=== PATIENT | female | born 1990 | race Caucasian/White ===

== ENCOUNTER 2016-08-16 20:13 | Emergency (ER) | payer OTHER ==
[~2016-08-16] VITALS: Ht 172.7 cm; Wt 108.9 kg
[~2016-08-16 20:13] MED LIST: ALBUTEROL0.09 MG/A3 IH; IMITREX25 MG PO; MOTRIN; NORCO 10/325 MG1 TAB PO; VENTOLIN INHALER; ZITHROMAX250 MG PO
[2016-08-16 21:04] VITALS: BP 122/87
--- NOTE | 2016-08-16 21:25 | NUR ---
PT TAKEN TO BED 3
--- NOTE | 2016-08-16 21:28 | NUR ---
26Y M BIB FAMILY C/O HEADACHE X 2 DAYS. 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 SKIN IS PINK/WARM/DRY; AAOX4 WITH EVEN AND STEADY GAIT; LUNGS CLEAR BL; HR EVEN AND REGULAR; PT DENIES ANY FEVER, CP, SOB, OR COUGH AT THIS TIME; PATIENT STATES PAIN OF 7/10 AT THIS TIME; VSS; PATIENT POSITIONED FOR COMFORT; HOB ELEVATED; BEDRAILS UP X2; BED DOWN. ER MD MADE AWARE OF PT STATUS.
--- NOTE | 2016-08-16 21:28 | NUR ---
Dr. Harvey evaluating patient at bedside.
[2016-08-16] MEDS ORDERED: KETOROLAC 30 MG/ML VIAL IVP ONE (21:40)
[2016-08-16] MEDS ORDERED: NACL 0.9% 1,000 ML IV ONE (21:40)
[2016-08-16] MEDS ORDERED: METOCLOPRAMIDE 10 MG/2 ML INJ VIAL IVP ONE (21:40)
[2016-08-16] MEDS ORDERED: diphenhydrAMINE 50 MG/ML VIAL IVP ONE (21:40)
[2016-08-16 22:58] VITALS: BP 109/73
--- NOTE | 2016-08-16 23:00 | NUR ---
Patient discharged with v/s stable. Written and verbal after care instructions given and explained. Patient alert, oriented and verbalized understanding of instructions. Ambulatory with steady gait. All questions addressed prior to discharge. ID band removed. Patient advised to follow up with PMD. Rx of FIORICET 50/325/40 MG given. Patient educated on indication of medication including possible reaction and side effects. Opportunity to ask questions provided and answered.
[2016-11-25] MEDS ORDERED: ROXICODONE5 M1 PO (13:37)
[2016-11-25] MEDS ORDERED: MOTRIN400 MG PO (13:37)
== END 2016-08-16 23:00 | disposition home or self-care (01) ==
LOC: MED 20:13
DX: G43.909 Migraine, unspecified, not intractable, without status migrainosus (principal); J45.909 Unspecified asthma, uncomplicated; Z88.1 Allergy status to other antibiotic agents; Z88.6 Allergy status to analgesic agent
CPT/HCPCS: 81002; 96361; 96374; 96375; 99284; J1200; J1885; J2765; J7030

== ENCOUNTER 2016-09-07 19:33 | Emergency (ER) | payer OTHER ==
[~2016-09-07] VITALS: Ht 172.7 cm; Wt 108.9 kg
[2016-09-07 20:16] VITALS: BP 131/93
--- NOTE | 2016-09-07 22:02 | NUR ---
Patient to bed 05.
--- NOTE | 2016-09-07 22:09 | NUR ---
Dr. Harvey evaluating patient at bedside.
--- NOTE | 2016-09-07 22:20 | NUR ---
26Y/M PATIENT PRESENTS TO ED WITH C/O ABSCESS TO LT. ARMPIT X 1 WKS . PT STATES LT. ARM PIT PAIN AND SWELLING X 1 WK, FEVER ON AND OFF . DENIES N/V/D; SKIN IS PINK/WARM/DRY, LT. ARMPIT SWELLING AND REDNESS; AAOX4 WITH EVEN AND STEADY GAIT; LUNGS CLEAR BL; HR EVEN AND REGULAR; PT DENIES ANY FEVER, CP, SOB, OR COUGH AT THIS TIME; PATIENT STATES PAIN OF 6/10 AT THIS TIME; VSS; PATIENT POSITIONED FOR COMFORT; HOB ELEVATED; BEDRAILS UP X2; BED DOWN. ER MD MADE AWARE OF PT STATUS.
[2016-09-07] MEDS ORDERED: LIDOCAINE/EPI 1% 1:100000 20 ML VIAL INJ ONE ×3 (22:25→22:47)
--- NOTE | 2016-09-07 23:00 | NUR ---
DR.MORRISON NYE I AND D AT BEDSIDE , RIVKA WIGGINS.
[2016-09-07] MEDS ORDERED: KETOROLAC 30 MG/ML VIAL IM ONE (23:20)
--- NOTE | 2016-09-08 | NUR ---
Patient discharged with v/s stable. Written and verbal after care instructions given and explained. Patient alert, oriented and verbalized understanding of instructions. Ambulatory with steady gait. All questions addressed prior to discharge. ID band removed. Patient advised to follow up with PMD. Rx of DOXYCYCLINE 100 MG, NAPROSYN 500 MG given. Patient educated on indication of medication including possible reaction and side effects. Opportunity to ask questions provided and answered.
[2016-09-08 00:05] VITALS: BP 129/85
[2016-11-25] MEDS ORDERED: ROXICODONE5 M1 PO (13:37)
[2016-11-25] MEDS ORDERED: MOTRIN400 MG PO (13:37)
== END 2016-09-08 | disposition home or self-care (01) ==
LOC: MED 19:33
DX: L02.412 Cutaneous abscess of left axilla (principal); J45.909 Unspecified asthma, uncomplicated; Z88.0 Allergy status to penicillin; Z88.6 Allergy status to analgesic agent
CPT/HCPCS: 10060; 96372; 99283; J1885; J2001

== ENCOUNTER 2016-10-16 21:06 | Emergency (ER) | payer OTHER ==
[~2016-10-16] VITALS: Ht 175.3 cm; Wt 104.3 kg
[~2016-10-16 21:06] MED LIST changes: +ALBU0.0967 IH; -ALBUTEROL0.09 MG/A3 IH; -IMITREX25 MG PO; -MOTRIN; -NORCO 10/325 MG1 TAB PO; -VENTOLIN INHALER; -ZITHROMAX250 MG PO
[2016-10-16 21:20] VITALS: BP 127/95
--- NOTE | 2016-10-16 23:05 | NUR ---
C/O ABCESS ON HEAD BEHIND RT EAR. PT HAS HISTORY OF GETTING ABCESS' MED HX: SLEEP APNEA/ASTHMA/ADD
[2016-10-16] MEDS ORDERED: LIDOCAINE 1% 500 MG/50 ML VIAL INJ SCH (23:20)
--- NOTE | 2016-10-16 23:20 | NUR ---
Patient being evaluated by physician DR FORD at bedside.
[2016-10-16] MEDS ORDERED: LIDOCAINE 1% ED 50 ML ONE (23:42)
--- NOTE | 2016-10-17 00:41 | NUR ---
Patient discharged with v/s stable. Written and verbal after care instructions given and explained. Patient alert, oriented and verbalized understanding of instructions. Ambulatory with steady gait. All questions addressed prior to discharge. ID band removed. Patient advised to follow up with PMD. Rx of MOTRIN 800MG AND DOXYCYCLINE 100MG given. Patient educated on indication of medication including possible reaction and side effects. Opportunity to ask questions provided and answered.
[2016-10-17 00:42] VITALS: BP 122/92
== END 2016-10-17 00:41 | disposition home or self-care (01) ==
LOC: MED 21:06
DX: H60.01 Abscess of right external ear (principal); R03.0 Elevated blood-pressure reading, without diagnosis of hypertension; J45.909 Unspecified asthma, uncomplicated; Z88.1 Allergy status to other antibiotic agents; Z88.6 Allergy status to analgesic agent; Z90.89 Acquired absence of other organs
CPT/HCPCS: 10060; 99283; J2001

== ENCOUNTER 2016-11-25 13:23 | Emergency (ER) | payer OTHER ==
[~2016-11-25] VITALS: Ht 175.3 cm; Wt 104.3 kg
[2016-11-25 13:29] VITALS: BP 126/90
[2016-11-25] MEDS ORDERED: OXYC5TAB92 PO (13:37)
[2016-11-25] MEDS ORDERED: IBUP-1842 PO (13:37)
--- NOTE | 2016-11-25 14:53 | NUR ---
Patient ambulated to bed 7. RN evaluating patient at bedside.
--- NOTE | 2016-11-25 15:00 | NUR ---
26/F BIB FAMILY C/O LEFT BREAST PAIN X1 DAY STARTED YESTERDAY S/P MASTECTOMY, DOUBLE MASTECTOMY, SURGERY 11/13/16, DRAINS REMOVED LEFT BREAST SATURDAY; SURGEON- TRENT FONTANA (OC) ;HX SLEEP APNEA, HS, ASTHMA . DENIES N/V/D; SKIN IS PINK/WARM/DRY; AAOX4 WITH EVEN AND STEADY GAIT; LUNGS CLEAR BL; HR EVEN AND REGULAR; PT DENIES ANY FEVER, CP, SOB, OR COUGH AT THIS TIME; PATIENT STATES PAIN OF 7/10 AT THIS TIME; VSS; PATIENT POSITIONED FOR COMFORT; HOB ELEVATED; BEDRAILS UP X2; BED DOWN. ER MD MADE AWARE OF PT STATUS.
[2016-11-25] MEDS ORDERED: MORPHINE SULFATE 4 MG/ML SYR IM ONE (15:25)
[2016-11-25] MEDS ORDERED: KETOROLAC 30 MG/ML VIAL IM ONE (15:25)
[2016-11-25 16:33] VITALS: BP 112/81
== END 2016-11-25 15:51 | disposition home or self-care (01) ==
LOC: MED 13:23
DX: M96.842 Postprocedural seroma of a musculoskeletal structure following a musculoskeletal system procedure (principal); G89.18 Other acute postprocedural pain; J45.909 Unspecified asthma, uncomplicated; Z88.1 Allergy status to other antibiotic agents; Z88.6 Allergy status to analgesic agent; Z88.8 Allergy status to other drugs, medicaments and biological substances
CPT/HCPCS: 76641; 96372; 99284; J1885; J2270

== ENCOUNTER 2017-07-30 00:45 | Emergency (ER) | payer OTHER ==
[~2017-07-30] VITALS: Ht 175.3 cm; Wt 104.3 kg
[~2017-07-30 00:45] MED LIST changes: +IBUP-1842 PO; +OXYC5TAB4 PO
[2017-07-30 00:56] VITALS: BP 137/80
--- NOTE | 2017-07-30 01:38 | NUR ---
PT TAKEN TO 2
--- NOTE | 2017-07-30 01:40 | NUR ---
27 Y/O M W/C/O EPIGASTRIC PAIN, N/V/D X 7 DAYS ON AND OFF. DENIES ANY FEVER OR BLOOD IN VOMIT OR STOOL. ANTHONY Cooney MADE AWARE.
[2017-07-30] MEDS ORDERED: ONDANSETRON 4 MG/2 ML VIAL IVP ONE (01:55)
[2017-07-30] MEDS ORDERED: NACL 0.9% 1,000 ML IV ONE (01:55)
[2017-07-30] MEDS ORDERED: KETOROLAC 30 MG/ML VIAL IVP ONE (01:55)
[2017-07-30 02:15] LABS: BASOPHILS # (AUTO) 0.5 K/uL (0.00-0.22); BASOPHILS % (AUTO) 4.9 % (0.0-2.0); EOSINOPHILS # (AUTO) 0.1 K/uL (0-0.4); EOSINOPHILS % (AUTO) 1.1 % (0.0-4.0); HEMATOCRIT 40.9 % (36-52); HEMOGLOBIN 13.4 g/dL (12.0-18.0); LYMPHOCYTES # (AUTO) 3.8 K/uL (2.0-11.5); LYMPHOCYTES % (AUTO) 34.9 % (20.5-51.1); MEAN CORPUSCULAR HEMOGLOBIN 28 pg (27-31); MEAN CORPUSCULAR HGB CONC 33 g/dL (33-37); MEAN CORPUSCULAR VOLUME 85 fL (80-94); MONOCYTES # (AUTO) 0.7 K/uL (0.8-1.0); MONOCYTES % (AUTO) 6.6 % (1.7-9.3); NEUTROPHILS # (AUTO) 5.8 K/uL (1.8-7.7); NEUTROPHILS % (AUTO) 52.5 % (42.2-75.2); PLATELET COUNT (AUTO) 294 K/uL (140-450); RED BLOOD CELL COUNT(AUTO) 4.83 MIL/uL (4.20-6.10); RED CELL DISTRIBUTION WIDTH 13.2 % (11.6-13.7); WHITE BLOOD COUNT (AUTO) 10.9 K/uL (4.8-10.8)
[2017-07-30 02:26] LABS: CARBON DIOXIDE 25.9 mmol/L (21-32); CREATININE 0.8 mg/dL (0.7-1.3); POTASSIUM 3.9 mmol/L (3.5-5.1)
--- NOTE | 2017-07-30 02:29 | NUR ---
PT TAKEN FOR X-RAY VIA WHEELCHAIR.
[2017-07-30 02:40] LABS: TOTAL BILIRUBIN 0.3 mg/dL (0.0-1.0)
[2017-07-30 03:32] VITALS: BP 125/85
--- NOTE | 2017-07-30 03:32 | NUR ---
Patient discharged with v/s stable. Written and verbal after care instructions given and explained. Patient alert, oriented and verbalized understanding of instructions. Ambulatory with steady gait. All questions addressed prior to discharge. ID band removed. Patient advised to follow up with PMD. Rx of ZOFRAN, TRAMADOL, AND MIRALAX given. Patient educated on indication of medication including possible reaction and side effects. Opportunity to ask questions provided and answered.
== END 2017-07-30 03:32 | disposition home or self-care (01) ==
LOC: MED 00:45
DX: A08.4 Viral intestinal infection, unspecified (principal); J45.909 Unspecified asthma, uncomplicated; R03.0 Elevated blood-pressure reading, without diagnosis of hypertension; Z88.1 Allergy status to other antibiotic agents; Z88.6 Allergy status to analgesic agent
CPT/HCPCS: 36415; 74022; 80053; 81002; 85025; 96361; 96374; 96375; 99285; J1885; J2405; J7030

== ENCOUNTER 2017-08-06 16:14 | Emergency (ER) | payer OTHER ==
[~2017-08-06] VITALS: Ht 175.3 cm; Wt 105.7 kg
[2017-08-06 16:19] VITALS: BP 131/91
--- NOTE | 2017-08-06 16:21 | NUR ---
PT AA&OX4 WITH EVEN AND STEADY GAIT; PT TO LOBBY AWAITING OPEN BED.
--- NOTE | 2017-08-06 16:44 | NUR ---
PT AMBULATED TO BED 11.
--- NOTE | 2017-08-06 16:45 | NUR ---
27M BIB SELF C/O BL UPPER ABDOMINAL PAIN X TODAY; PT STATES SEEN AT [facility] ER LAST WEEK FOR SAME S/S, BUT PAIN WORSENED TODAY. HX: ASTHMA, SLEEP APNEA, SKIN CONDITION.DENIES N/V/D; AAOX4 WITH EVEN AND STEADY GAIT; LUNGS CLEAR BL; HR EVEN AND REGULAR; PT DENIES ANY FEVER, CP, SOB, OR COUGH AT THIS TIME; PATIENT STATES PAIN OF 9/10 AT THIS TIME; PATIENT POSITIONED FOR COMFORT; HOB ELEVATED; BEDRAILS UP X2; BED DOWN. ER MD MADE AWARE OF PT STATUS.
--- NOTE | 2017-08-06 16:45 | NUR ---
PT TAKEN TO CT VIA W/C ACCOMPANIED BY RAD KALYN
--- NOTE | 2017-08-06 17:09 | NUR ---
PT BACK FROM CT.
--- NOTE | 2017-08-06 17:13 | NUR ---
LAB AT BEDSIDE.
[2017-08-06] MEDS ORDERED: MORPHINE SULFATE 4 MG/ML SYR IVP ONE (17:25)
[2017-08-06] MEDS ORDERED: KETOROLAC 30 MG/ML VIAL IVP ONE (17:30)
[2017-08-06] MEDS ORDERED: NACL 0.9% 1,000 ML IV ONE (17:35)
[2017-08-06 17:45] LABS: ALBUMIN 4.3 g/dL (3.4-5.0); ANION GAP 12.9 (8-16); CARBON DIOXIDE 29.2 mmol/L (21-32); CREATININE 0.9 mg/dL (0.7-1.3); POTASSIUM 4.1 mmol/L (3.5-5.1); TOTAL BILIRUBIN 0.5 mg/dL (0.0-1.0)
[2017-08-06 17:49] LABS: APPEARANCE,URINE CLEAR (CLEAR); BILIRUBIN,URINE NEGATIVE (NEGATIVE); BLOOD, URINE 1+ (NEGATIVE); COLOR,URINE YELLOW (YELLOW); LEUKOCYTE ESTERASE ,URINE NEGATIVE (NEGATIVE); NITRITE, URINE NEGATIVE (NEGATIVE); PH,URINE 5.5 (5.0-9.0); UGLUCOSE NEGATIVE (NEGATIVE)
[2017-08-06 18:00] LABS: RBC,URINE 3-10 (FEW) /HPF (0-5); WBC,URINE 0-5 (RARE) /HPF (0-5)
[2017-08-06] MEDS ORDERED: FAMOTIDINE 20 MG/2 ML VIAL IVP ONE (18:20)
[2017-08-06 19:04] VITALS: BP 120/74
--- NOTE | 2017-08-06 19:04 | NUR ---
Patient discharged with v/s stable. Written and verbal after care instructions given and explained. Patient alert, oriented and verbalized understanding of instructions. Ambulatory with steady gait. All questions addressed prior to discharge. ID band removed. Patient advised to follow up with PMD. Rx of ZANTEC given. Patient educated on indication of medication including possible reaction and side effects. Opportunity to ask questions provided and answered.
--- NOTE | 2017-08-06 19:10 | NUR ---
Note darlin in EDM - 08/06/17 at 1933 by NESTOR Patient discharged with v/s stable. Written and verbal after care instructions given and explained. Patient alert, oriented and verbalized understanding of instructions. Ambulatory with steady gait. All questions addressed prior to discharge. ID band removed. Patient advised to follow up with PMD. Rx of ZANTAC given. Patient educated on indication of medication including possible reaction and side effects. Opportunity to ask questions provided and answered.
[2017-08-06 21:19] LABS: WHITE BLOOD COUNT (AUTO) 11.9 K/uL (4.8-10.8)
[2017-08-06 21:20] LABS: HEMOGLOBIN 15.1 g/dL (12.0-18.0); MEAN CORPUSCULAR HEMOGLOBIN 28 pg (27-31); MEAN CORPUSCULAR HGB CONC 33 g/dL (33-37); MEAN CORPUSCULAR VOLUME 85 fL (80-94); RED BLOOD CELL COUNT(AUTO) 5.41 MIL/uL (4.20-6.10); RED CELL DISTRIBUTION WIDTH 14.2 % (11.6-13.7)
[2017-08-06 21:21] LABS: EOSINOPHILS % (AUTO) 1.2 % (0.0-4.0); LYMPHOCYTES % (AUTO) 8.5 % (20.5-51.1); MONOCYTES % (AUTO) 3.6 % (1.7-9.3); NEUTROPHILS % (AUTO) 86.7 % (42.2-75.2); PLATELET COUNT (AUTO) 322 K/uL (140-450)
== END 2017-08-06 19:04 | disposition home or self-care (01) ==
LOC: MED 16:14
DX: K29.70 Gastritis, unspecified, without bleeding (principal); J45.909 Unspecified asthma, uncomplicated; Z88.6 Allergy status to analgesic agent; Z88.0 Allergy status to penicillin
CPT/HCPCS: 36415; 74176; 80053; 81001; 82150; 83690; 85025; 96361; 96374; 96375; 99285; J1885; J3490; J7030

== ENCOUNTER 2017-11-11 18:36 | Emergency (ER) | payer OTHER ==
[~2017-11-11] VITALS: Ht 175.3 cm; Wt 106.8 kg
[2017-11-11 18:56] VITALS: BP 141/81
[2017-11-11] MEDS: KETOROLAC 60 MG/2 ML VIAL IM ONE (21:30)
[2017-11-11 21:40] VITALS: BP 138/84
== END 2017-11-11 21:40 | disposition home or self-care (01) ==
LOC: MED 18:36
DX: R21 Rash and other nonspecific skin eruption (principal); J45.909 Unspecified asthma, uncomplicated; Z88.1 Allergy status to other antibiotic agents; Z88.8 Allergy status to other drugs, medicaments and biological substances; Z79.899 Other long term (current) drug therapy; Z91.041 Radiographic dye allergy status
CPT/HCPCS: 96372; 99283; J1885

== ENCOUNTER 2019-01-07 18:45 | Emergency (ER) | payer OTHER ==
[~2019-01-07] VITALS: Ht 175.3 cm; Wt 99.8 kg
[2019-01-07 18:50] VITALS: BP 150/100
--- NOTE | 2019-01-07 18:50 | NUR ---
Patient ambulated to bed 4. RN evaluating patient at bedside.
--- NOTE | 2019-01-07 19:00 | NUR ---
PT IS A 28 Y/O MALE WHO PRESENTS WHO PRESENTS TO THE ED C/O ABD PAIN. PT STATES THAT SYMPTOMS STARTED YESTERDAY. STATES THAT IT IS AN OVARIAN CYST. 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 PT REPORTS 9/10 ACHING LOWER ABD PAIN THAT DOES NOT RADIATE. PT DENIES CP, SOB, N/V/D. ALSO REPORTS RASH TO R ARM. PT AWAKE AND ALERT, RR EVEN/UNLABORED. PT REPOSITIONED FOR COMFORT, BED IN LOWEST POSITION. ER MD DR. SPEAR NOTIFIED. WILL CONTINUE TO MONITOR. PMH---OVARIAN CYST, ASTHMA, SLEEP APNEA, HS ALLERGIES---ACETAMINOPHEN, AMOXICILLIN, MRI DYE
[2019-01-07] MEDS ORDERED: NACL 0.9% 1,000 ML IV ONE (19:32)
[2019-01-07] MEDS ORDERED: MORPHINE SULFATE 4 MG/ML SYR IVP ONE (19:35)
[2019-01-07] MEDS ORDERED: ONDANSETRON 4 MG/2 ML VIAL IVP ONE (19:35)
--- NOTE | 2019-01-07 19:47 | NUR ---
PT RETURN FROM CT
[2019-01-07] MEDS ORDERED: KETOROLAC 30 MG/ML VIAL IVP ONE (20:00)
[2019-01-07 20:09] LABS: BASOPHILS % (AUTO) 0.3 % (0.0-2.0); EOSINOPHILS # (AUTO) 0.1 K/uL (0-0.4); EOSINOPHILS % (AUTO) 0.8 % (0.0-4.0); HEMATOCRIT 42.1 % (36-52); HEMOGLOBIN 13.7 g/dL (12.0-18.0); LYMPHOCYTES # (AUTO) 3.5 K/uL (2.0-11.5); LYMPHOCYTES % (AUTO) 37.6 % (20.5-51.1); MEAN CORPUSCULAR HEMOGLOBIN 26 pg (27-31); MEAN CORPUSCULAR HGB CONC 33 g/dL (33-37); MEAN CORPUSCULAR VOLUME 79.8 fL (80-94); MONOCYTES # (AUTO) 0.5 K/uL (0.8-1.0); MONOCYTES % (AUTO) 5.6 % (1.7-9.3); NEUTROPHILS # (AUTO) 5.2 K/uL (1.8-7.7); NEUTROPHILS % (AUTO) 55.7 % (42.2-75.2); PLATELET COUNT (AUTO) 338 K/uL (140-450); RED BLOOD CELL COUNT(AUTO) 5.28 MIL/uL (4.20-6.10); WHITE BLOOD COUNT (AUTO) 9.4 K/uL (4.8-10.8)
[2019-01-07 20:31] LABS: ANION GAP 12.9 (8-16); CARBON DIOXIDE 28.9 mmol/L (21-32); CREATININE 1.1 mg/dL (0.7-1.3); POTASSIUM 3.8 mmol/L (3.5-5.1)
[2019-01-07 20:37] LABS: ALBUMIN 3.9 g/dL (3.4-5.0); TOTAL BILIRUBIN 0.5 mg/dL (0.0-1.0)
[2019-01-07 20:43] LABS: APPEARANCE,URINE CLEAR (CLEAR); BILIRUBIN,URINE NEGATIVE (NEGATIVE); BLOOD, URINE TRACE-I (NEGATIVE); COLOR,URINE YELLOW (YELLOW); LEUKOCYTE ESTERASE ,URINE TRACE (NEGATIVE); NITRITE, URINE NEGATIVE (NEGATIVE); UGLUCOSE NEGATIVE (NEGATIVE)
[2019-01-07 20:50] LABS: RBC,URINE 0-5 /HPF (0-5)
[2019-01-07 21:20] VITALS: BP 142/88
[2019-01-10 06:08] LABS: CHLAMYDIA TRACHOMATIS AMP DNA Negative (Negative)
== END 2019-01-07 21:20 | disposition home or self-care (01) ==
LOC: MED 18:45
DX: N39.0 Urinary tract infection, site not specified (principal); J45.909 Unspecified asthma, uncomplicated; Z88.1 Allergy status to other antibiotic agents; Z88.6 Allergy status to analgesic agent; Z90.13 Acquired absence of bilateral breasts and nipples; Z79.899 Other long term (current) drug therapy
CPT/HCPCS: 36415; 74176; 80053; 81001; 83690; 85025; 87086; 87491; 96374; 96375; 99284; J1885; J2405; J7030; 81025; J2270

== ENCOUNTER 2019-04-20 13:29 | Emergency (ER) | payer OTHER ==
[~2019-04-20] VITALS: Ht 175.3 cm; Wt 113.4 kg
--- NOTE | 2019-04-20 13:41 | NUR ---
Patient ambulated to bed 6. RN evaluating patient at bedside.
[2019-04-20 13:55] VITALS: BP 122/76
--- NOTE | 2019-04-20 14:36 | NUR ---
PT PRESENTS TO THE ED WITH C/O POUNDING HEADACHE 6/10, FEELING LIGHTHEADED, NUMBNESS IN L ARM, AND NAUSEA X 1 DAY. DENIES V/D; SKIN IS PINK/WARM/DRY; AAOX4 WITH CLEAR SPEECH. PT HAS EVEN AND STEADY GAIT; HR EVEN AND REGULAR; PT DENIES ANY FEVER, CP, OR COUGH AT THIS TIME; VSS; PATIENT POSITIONED FOR COMFORT; HOB ELEVATED; LIGHTS DIMMED, BEDRAILS UP X1; BED DOWN IN LOWEST POSITION. HX: HAQUE, MIGRAINE, SLEEP APNEA, AND ASTHMA. RX: FLEXERIL ALLERGY: AMOXICILLIN, TYLENOL, AND IODINE DYE
[2019-04-20] MEDS ORDERED: NACL 0.9% 1,000 ML IV ONE (14:50)
[2019-04-20 15:09] LABS: BASOPHILS % (AUTO) 0.2 % (0.0-2.0); EOSINOPHILS # (AUTO) 0.1 K/uL (0-0.4); EOSINOPHILS % (AUTO) 1.1 % (0.0-4.0); HEMATOCRIT 46.9 % (36-52); HEMOGLOBIN 15.3 g/dL (12.0-18.0); LYMPHOCYTES # (AUTO) 3.2 K/uL (2.0-11.5); LYMPHOCYTES % (AUTO) 39.6 % (20.5-51.1); MEAN CORPUSCULAR HEMOGLOBIN 27 pg (27-31); MEAN CORPUSCULAR HGB CONC 33 g/dL (33-37); MEAN CORPUSCULAR VOLUME 81.8 fL (80-94); MONOCYTES # (AUTO) 0.5 K/uL (0.8-1.0); MONOCYTES % (AUTO) 6.2 % (1.7-9.3); NEUTROPHILS # (AUTO) 4.3 K/uL (1.8-7.7); NEUTROPHILS % (AUTO) 52.9 % (42.2-75.2); PLATELET COUNT (AUTO) 283 K/uL (140-450); RED BLOOD CELL COUNT(AUTO) 5.73 MIL/uL (4.20-6.10); RED CELL DISTRIBUTION WIDTH 16.2 % (11.6-13.7); WHITE BLOOD COUNT (AUTO) 8.2 K/uL (4.8-10.8)
--- NOTE | 2019-04-20 15:11 | NUR ---
PT RESTING IN BED.
--- NOTE | 2019-04-20 15:12 | NUR ---
pt unable to urinate at this time, provided water
--- NOTE | 2019-04-20 15:15 | NUR ---
pt going to ct via wheelchair
--- NOTE | 2019-04-20 15:39 | NUR ---
pt ambulated to restroom with steady gait
--- NOTE | 2019-04-20 15:45 | NUR ---
X-RAY COMPLETED AT BEDSIDE
[2019-04-20 16:00] LABS: ANION GAP 12.6 (8-16); CREATININE 0.8 mg/dL (0.7-1.3); POTASSIUM 3.6 mmol/L (3.5-5.1)
[2019-04-20] MEDS ORDERED: KETOROLAC 15 MG/ML VIAL IVP ONE ×2 (16:05→16:55)
[2019-04-20 16:06] LABS: ALBUMIN 3.7 g/dL (3.4-5.0); TOTAL BILIRUBIN 0.4 mg/dL (0.0-1.0)
[2019-04-20 16:10] LABS: BARBITURATE, URINE NEG. ng/ml (NEG <=200); BENZODIAZEPINE, URINE NEG. ng/mL (NEG <=200); CANNABINOID, URINE NEG. ng/mL (NEG <=50); COCAINE, URINE NEG. ng/mL (NEG <=300); OPIATE, URINE NEG. ng/mL (NEG <=2000); PHENCYCLIDINE SCREEN,URINE NEG. ng/mL (NEG <=25)
--- NOTE | 2019-04-20 16:23 | NUR ---
PT RESTING IN BED, LIGHTS DIMMED FOR PT COMFORT.
--- NOTE | 2019-04-20 16:52 | NUR ---
ROHAN Mccrary re-evaluating patient at bedside.
[2019-04-20] MEDS ORDERED: SUMAtriptan 25 MG TAB PO ONE (16:55)
--- NOTE | 2019-04-20 17:18 | NUR ---
pt resting in bed with ice pack on forehead, no new needs at this time
[2019-04-20 18:21] VITALS: BP 121/89
--- NOTE | 2019-04-20 18:21 | NUR ---
Patient discharged with v/s stable. Written and verbal after care instructions given and explained. Patient alert, oriented and verbalized understanding of instructions. Ambulatory with steady gait. All questions addressed prior to discharge. ID band removed. Patient advised to follow up with PMD. Rx IMITREX NASAL SPRAY given. Patient educated on indication of medication including possible reaction and side effects. Opportunity to ask questions provided and answered.
== END 2019-04-20 18:21 | disposition home or self-care (01) ==
LOC: MED 13:29
DX: G43.909 Migraine, unspecified, not intractable, without status migrainosus (principal); R42 Dizziness and giddiness; R20.0 Anesthesia of skin; J45.909 Unspecified asthma, uncomplicated; Z98.890 Other specified postprocedural states; Z79.1 Long term (current) use of non-steroidal anti-inflammatories (NSAID); Z79.891 Long term (current) use of opiate analgesic; Z79.51 Long term (current) use of inhaled steroids; Z88.6 Allergy status to analgesic agent; Z88.0 Allergy status to penicillin; Z91.041 Radiographic dye allergy status
CPT/HCPCS: 36415; 70450; 71045; 80053; 80305; 82948; 84484; 85025; 93005; 96361; 96374; 96376; 99284; J1885; J7030; Q0092

== ENCOUNTER 2020-08-28 05:48 | Emergency (ER) | payer SELFPAY ==
[~2020-08-28] VITALS: Ht 175.3 cm; Wt 108.9 kg
[2020-08-28 05:59] VITALS: BP 155/90
[2020-08-28] MEDS ORDERED: KETOROLAC 60 MG/2 ML VIAL IM ONE (06:20)
[2020-08-28 07:15] LABS: BILIRUBIN,URINE NEGATIVE (NEGATIVE); BLOOD, URINE 2+ (NEGATIVE); COLOR,URINE YELLOW (YELLOW); LEUKOCYTE ESTERASE ,URINE 1+ (NEGATIVE); NITRITE, URINE NEGATIVE (NEGATIVE); UGLUCOSE NEGATIVE (NEGATIVE)
[2020-08-28 07:19] LABS: APPEARANCE,URINE CLEAR (CLEAR)
[2020-08-28 07:20] LABS: WBC,URINE 0-5 /HPF (0-5)
[2020-08-28] MEDS ORDERED: IBUP-2213 PO ×2 (07:31→08:00)
[2020-08-28] MEDS ORDERED: CIPR500T4 PO ×2 (07:31→08:00)
[2020-08-28 08:00] VITALS: BP 149/82
== END 2020-08-28 08:01 | disposition home or self-care (01) ==
LOC: MED 05:48
DX: N39.0 Urinary tract infection, site not specified (principal); J45.909 Unspecified asthma, uncomplicated; Z90.49 Acquired absence of other specified parts of digestive tract; Z79.899 Other long term (current) drug therapy; Z88.1 Allergy status to other antibiotic agents; Z88.6 Allergy status to analgesic agent
CPT/HCPCS: 76856; 81001; 87086; 96372; 99284; J1885; 81025